=== PATIENT | female | born 2000 | race Caucasian/White ===

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

== ENCOUNTER 2018-12-17 21:25 | Emergency (ER) | payer MEDICAID ==
[2018-12-17 21:25] VITALS: BMI 25.4
[2018-12-17] MEDS ORDERED: Albuterol-Ipratrop 3 mg / 0.5 (3 ml) UD ONE ×2 (21:34→22:24)
[2018-12-17 21:36] VITALS: TEMP 98
[2018-12-17] MEDS ORDERED: Sodium Chloride 0.9% 1,000 ML IV ONE (21:54)
--- NOTE | 2018-12-17 21:54 | C.PDOC ---
History Of Present Illness Patient presents with SOB for the last 2 weeks with yellow/greenish sputum. She is speaking in complete sentences. Denies chest pain or palpitations. Time Seen by Provider: 12/17/18 21:38 Chief Complaint (Nursing): Shortness Of Breath History Per: Patient History/Exam Limitations: no limitations Onset/Duration Of Symptoms: Days (2 weeks) Current Symptoms Are (Timing): Still Present Current Respiratory Medications: See Home Med List Severity: Moderate Pain Scale Rating Of: 4 Associated Symptoms: denies: Chest Pain, Other (Palpitations) Recent travel outside of the [place]: No Past Medical History Reviewed: Historical Data, Nursing Documentation, Vital Signs Vital Signs: Last Vital Signs Temp 98 F 12/17/18 21:33 Pulse 125 H 12/17/18 21:33 Resp 22 12/17/18 21:49 BP 141/82 12/17/18 21:33 Pulse Ox 95 12/17/18 21:33 Family History: States: No Known Family Hx - Social History Hx Tobacco Use: No Hx Alcohol Use: No Hx Substance Use: No - Immunization History Hx Tetanus Toxoid Vaccination: Yes Hx Influenza Vaccination: Yes (Jun 2016) Hx Pneumococcal Vaccination: No Review Of Systems Constitutional: Negative for: Fever, Chills Cardiovascular: Negative for: Chest Pain, Palpitations Respiratory: Positive for: Shortness of Breath, Sputum Gastrointestinal: Negative for: Nausea, Vomiting Neurological: Negative for: Weakness, Numbness Physical Exam - Physical Exam Appears: Non-toxic Skin: Warm, Dry Head: Normacephalic Oral Mucosa: Moist Throat: No Erythema, No Exudate Neck: Trachea Midline, Supple Chest: Symmetrical, No Tenderness Cardiovascular: Rhythm Regular Respiratory: Decreased Breath Sounds, No Rales, No Rhonchi, Wheezing (Diffuse) Gastrointestinal/Abdominal: Soft, No Tenderness Neurological/Psych: Oriented x3 ED Course And Treatment - Laboratory Results Result Diagrams: 12/17/18 22:20 12/17/18 22:20 O2 Sat by Pulse Oximetry: 95 (Room air) Pulse Ox Interpretation: Normal - Radiology CXR: Interpreted by Me, Viewed By Me CXR Interpretation: No: Infiltrates, Fracture, Pnemothorax Progress Note: Blood work, urinalysis, flu swab, and CXR ordered. Duoneb, solumedrol, and IV fluids administered. Reevaluation Time: 00:24 Reassessment Condition: Improved Critical Care Time - Critical Care Note Total Time (in mins): 30 Documented critical care: time excludes all time spent performing seperately emily lable procedures. Disposition Counseled Patient/Family Regarding: Studies Performed, Diagnosis, Need For Followup, Rx Given - Disposition Referrals: Blaine Ly DO [[facility]] - Disposition: HOME/ ROUTINE Disposition Time: 21:54 Condition: FAIR Additional Instructions: Please return if symptoms recur Prescriptions: Albuterol HFA [Ventolin HFA 90 mcg/actuation (8 g)] 2 puff IH [id number] #1 puff Azithromycin [Zithromax Tri-Mike] 500 mg PO DAILY #3 tablet Prednisone [Deltasone] 20 mg PO DAILY #5 tablet Instructions: Asthma, Adult (DC), Acute Bronchitis Forms: [employer] (Hungarian) - Clinical Impression Clinical Impression: Bronchitis, Dyspnea, Asthma - Scribe Statement The provider has reviewed the documentation as recorded by the Scribe Sagar Faust All medical record entries made by the Scribe were at my direction and persona lly dictated by me. I have reviewed the chart and agree that the record accurately reflects my personal performance of the history, physical exam, medical decision making, and the department course for this patient. I have also personally directed, reviewed, and agree with the discharge instructions and disposition.
[2018-12-17] MEDS: Albuterol-Ipratrop 3 mg / 0.5 (3 ml) UD IH SCH ×3 (22:00→22:30)
[2018-12-17] MEDS ORDERED: Sodium Chloride 0.9% 1,000 ML ONE (22:15)
[2018-12-17 22:31] LABS: BASO # 0.1 K/uL (0.0-0.2); BASO % 0.5 % (0.0-2.0); EOS # 1.2 K/uL (0.0-0.7); EOS % 8.3 % (0.0-4.0); HEMOGLOBIN 14.5 g/dL (11.0-16.0); LYMPH % 27.1 % (20.0-40.0); MEAN CELL VOLUME 88.5 fL (81.0-99.0); MEAN CORPUSCULAR HEMOGLOBIN 28.4 pg (27.0-31.0); MEAN CORPUSCULAR HGB CONC 32.1 g/dL (33.0-37.0); MEAN PLATELET VOLUME 8.8 fL (7.2-11.7); MONO # 1.5 K/uL (0.0-0.8); MONO % 9.8 % (0.0-10.0); NEUT # 8.1 K/uL (1.8-7.0); NEUT % 54.3 % (50.0-75.0); NRBC % 0.1 % (0.0-2.0); RBC 5.11 Mil/uL (3.80-5.20); RED CELL DISTRIBUTION WIDTH 12.9 % (11.5-14.5); WHITE BLOOD COUNT 14.9 K/uL (4.8-10.8)
[2018-12-17 22:37] LABS: HCG,QUALITATIVE URINE NEGATIVE (NEGATIVE)
[2018-12-17 22:40] LABS: SQUAMOUS EPITHIAL 28 /hpf (0-5); URINE AMORPHOUS SEDIMENT RARE /ul (<OCC); URINE BACTERIA OCC (<OCC); URINE BILIRUBIN NEGATIVE (NEGATIVE); URINE BLOOD NEGATIVE (NEGATIVE); URINE CLARITY Hazy (Clear); URINE COLOR Yellow (YELLOW); URINE GLUCOSE (UA) NORMAL (Normal); URINE PROTEIN NEGATIVE (NEGATIVE); URINE UROBILINOGEN NORMAL mg/dL (0.2-1.0)
[2018-12-17 22:41] LABS: URINE LEUKOCYTE ESTERASE TRACE Leu/uL (Negative)
[2018-12-17] MEDS ORDERED: Azithromycin 500mg/250ML NS 500 MG/250 ML BAG IVPB ONE ×2 (22:45→23:22)
[2018-12-17 22:46] LABS: VENOUS BLOOD GAS BASE EXCESS -5.7 mmol/L (0.0-2.0); VENOUS BLOOD GAS PCO2 36 mmHg (40-60); VENOUS BLOOD GAS PO2 24 mm/Hg (30-55); VENOUS BLOOD PH 7.34 (7.32-7.43)
[2018-12-17 22:48] LABS: BLOOD UREA NITROGEN 13 mg/dL (7-17)
[2018-12-17 22:49] LABS: CALCIUM 9.1 mg/dl (8.6-10.4); GFR NON-AFRICAN AMERICAN > 60
[2018-12-18 00:49] VITALS: BP 138/88; PULSE 92; RESP 20; O2SAT 98
--- NOTE | 2018-12-18 10:36 | RAD ---
Date of service: 12/17/2018 HISTORY: Shortness of breath COMPARISON: 12/11/2016 TECHNIQUE: Chest PA and lateral FINDINGS: LUNGS: No active pulmonary disease. Small nodular density at the right lung apex may represent confluence of shadows with ribs and vessels. Bibasilar breast and nipple shadows. PLEURA: No significant pleural effusion identified. No pneumothorax apparent. CARDIOVASCULAR: No aortic atherosclerotic calcification present. Normal cardiac size. OSSEOUS STRUCTURES: No significant abnormalities. VISUALIZED UPPER ABDOMEN: Normal. OTHER FINDINGS: None. IMPRESSION: No active disease.
== END 2018-12-18 00:41 | disposition home or self-care (01) ==
LOC: C.ER 21:25
DX: J45.909 Unspecified asthma, uncomplicated (principal); R06.00 Dyspnea, unspecified
CPT/HCPCS: 71046; 80048; 81001; 82803; 84703; 85025; 87804; 96361; 96365; 96375; 99283; J0456; J2930; J7030